=== PATIENT | male | born 1950 | race Caucasian/White ===

== ENCOUNTER 2021-02-22 08:07 | Emergency (ER) | payer OTHER ==
[~2021-02-22] VITALS: Ht 167.6 cm; Wt 66.7 kg
--- NOTE | 2021-02-22 08:15 | NUR ---
TO ER BED 2, C/O DISPLACED DANIEL CATHETER WITH LITTLE BLOOD IN URINE SINCE MARÍA BOYER ACCIDENTALLY PULLED THIS MORNING, AT BEDSIDE
--- NOTE | 2021-02-22 08:27 | NUR ---
CALLED [facility].
[2021-02-22 08:38] LABS: HEMOGLOBIN 13.2 g/dL (13.5-17.5); RED BLOOD CELL COUNT(AUTO) 4.15 MIL/uL (4.5-6.0); WHITE BLOOD COUNT (AUTO) 6.9 K/uL (4.3-11.0)
[2021-02-22 08:46] LABS: BASOPHILS % (AUTO) 0.7 % (0.0-2.0); HEMATOCRIT 39 % (39-51); LYMPHOCYTES # (AUTO) 1.7 K/uL (0.8-4.8); LYMPHOCYTES % (AUTO) 24.9 % (20.0-44.0); MEAN CORPUSCULAR HGB CONC 34 g/dl (31.0-36.0); MEAN CORPUSCULAR VOLUME 95 fL (80-96); MONOCYTES # (AUTO) 0.5 K/uL (0.1-1.30); NEUTROPHILS # (AUTO) 4.4 K/uL (1.8-8.9); NEUTROPHILS % (AUTO) 64.4 % (43.0-81.0); PLATELET COUNT (AUTO) 185 K/uL (150-450)
[2021-02-22 08:47] LABS: CALCIUM, SERUM 8.6 mg/dL (8.5-10.1); CREATININE 0.9 mg/dL (0.6-1.3)
--- NOTE | 2021-02-22 08:47 | NUR ---
URINE COLLECTED AND SENT TO LAB
--- NOTE | 2021-02-22 08:58 | NUR ---
URINE RECEIVED PER LAISHA FROM LAB
--- NOTE | 2021-02-22 09:02 | NUR ---
CALLED [facility] DR. DIAZ WILL BE CALLING US BACK.
[2021-02-22 09:03] LABS: BILIRUBIN,URINE Negative (NEGATIVE); COLOR,URINE AMBER (YELLOW); LEUKOCYTE ESTERASE ,URINE Small (NEGATIVE); NITRITE, URINE Negative (NEGATIVE); PH,URINE 6.5 (5.0-8.0); PROTEIN,URINE >=300 mg/dl (NEGATIVE); UGLUCOSE Negative (NEGATIVE); UROBILINOGEN,URINE 0.2 EU/dL (0.2)
--- NOTE | 2021-02-22 09:12 | NUR ---
POTASSIUM 3.0, MD INFORMED
[2021-02-22 09:13] LABS: RBC,URINE TOO NUMEROUS TO COUN /HPF (0-2)
[2021-02-22 09:15] LABS: WBC,URINE 81-100 /HPF (0-3)
[2021-02-22 09:16] LABS: BACTERIA,URINE Rare /HPF (None Seen)
[2021-02-22] MEDS ORDERED: POTASSIUM CHLORIDE 20 MEQ TAB.PRT.SR PO ONE (09:16)
[2021-02-22 09:17] LABS: SQUAMOUS EPITHELIAL CELL,UR None Seen /HPF (None Seen)
[2021-02-22] MEDS: POTASSIUM CHLORIDE 20 MEQ TAB.PRT.SR PO ONE (09:18)
[2021-02-22] MEDS ORDERED: CEFTRIAXONE 1 G VIAL ONE (09:50)
[2021-02-22] MEDS ORDERED: LIDOCAINE 1% INJ 50 ML MDV IJ ONE (09:50)
[2021-02-22] MEDS ORDERED: LIDOCAINE /MPF 1% VIAL 5 ML VIAL ONE (09:51)
[2021-02-22] MEDS: CEFTRIAXONE 1 G VIAL IM ONE (09:58)
[2021-02-22 10:07] VITALS: BP 137/84
[2021-02-22] MEDS ORDERED: CEPH500C2 PO (10:13)
== END 2021-02-22 10:24 | disposition home or self-care (01) ==
LOC: ER 08:14
DX: N39.0 Urinary tract infection, site not specified (principal); E87.6 Hypokalemia; N40.0 Benign prostatic hyperplasia without lower urinary tract symptoms; R31.9 Hematuria, unspecified; E78.00 Pure hypercholesterolemia, unspecified
CPT/HCPCS: 36415; 80048; 81001; 85025; 85730; 87086; 96372; 99283; J0696; J3490